=== PATIENT | female | born 1990 | race Caucasian/White ===

== ENCOUNTER → 2020-10-07 12:52 | Outpatient (BNVA) | payer OTHER, MEDICAID, SELFPAY | PROVIDERS: PCP Family Medicine | DX: N32.81 Overactive bladder (principal) | CPT/HCPCS: 51798 ==

== ENCOUNTER 2021-09-07 13:36 | Outpatient (REF) | payer OTHER, MEDICAID, SELFPAY | END 2021-09-07 13:37 | disposition home or self-care (01) | LOC: HO.LAB 13:36 | DX: N32.81 Overactive bladder (principal); R31.9 Hematuria, unspecified | CPT/HCPCS: 87086 ==